=== PATIENT | male | born 1930 | race Caucasian/White ===

== ENCOUNTER 2016-11-13 11:21 | Day surgery (SDC) | payer MEDICARE, OTHER ==
[~2016-11-13 11:21] MED LIST: ASPIRIN EC81 MG PO; COZAAR50 M1 PO; MEDS; PERCOCET 5-3251 EACH PO; RANITIDINE HCL150 M3 PO; TOPROL XL25 M1 PO
[2016-11-13] MEDS ORDERED: GLUCOSAMINE CH1 EAC8 PO ×2 (12:06→12:08)
[2016-11-13] MEDS ORDERED: CALCIUM 500 +1 EAC9 PO ×2 (12:06→12:07)
[2016-11-13 12:32] LABS: ANION GAP 14 mmol/L (0-20); BLOOD UREA NITROGEN 20 mg/dl (6-24); CALCIUM 8.9 mg/dl (8.5-10.5); CARBON DIOXIDE-VENOUS 24 mmol/L (22-32); CHLORIDE 108 mmol/l (96-110); CREATININE 1.34 mg/dl (0.60-1.30); GLUCOSE 88 mg/dL (70-110); POTASSIUM 3.8 mmol/L (3.7-5.1); SODIUM 142 mmol/L (135-145); eGFR VALUE FOR BLACK 56 mL/Min
== END 2016-11-13 21:30 ==
LOC: SRG 11:21 → SHSB 11:22 → ORE 13:16 → PACU 14:33 → SHSB 15:05
PROVIDERS: Urology
PROC: 0T768DZ Dilation of Right Ureter with Intraluminal Device, Via Natural or Artificial Opening Endoscopic (ICD-10-PCS; principal; 2016-11-13)
PROC: 0TF6XZZ Fragmentation in Right Ureter, External Approach (ICD-10-PCS; 2016-11-13)
DX: N20.1 Calculus of ureter (principal); I10 Essential (primary) hypertension; F03.90 Unspecified dementia, unspecified severity, without behavioral disturbance, psychotic disturbance, mood disturbance, and anxiety; G47.30 Sleep apnea, unspecified; Z79.899 Other long term (current) drug therapy; Z90.49 Acquired absence of other specified parts of digestive tract; Z98.1 Arthrodesis status; Z79.82 Long term (current) use of aspirin
CPT/HCPCS: C1769; C2617; J1956